=== PATIENT | male | born 1945 | race Two or more races ===

== ENCOUNTER 2018-04-17 08:35 | Outpatient (CLI) | payer OTHER ==
[~2018-04-17] VITALS: Ht 170.2 cm; Wt 95.3 kg
[2018-04-17] MEDS ORDERED: DYMISTA NASAL S23 GM NS (11:21)
[2018-04-17] MEDS ORDERED: CEFUROXIME500 MG PO (11:21)
== END 2018-04-17 08:55 | disposition home or self-care (01) ==
LOC: OFIC 805 08:35
DX: H90.3 Sensorineural hearing loss, bilateral (principal); J32.8 Other chronic sinusitis; J34.2 Deviated nasal septum; H61.22 Impacted cerumen, left ear; R49.0 Dysphonia

== ENCOUNTER 2018-04-30 08:24 | Outpatient (CLI) | payer OTHER ==
[~2018-04-30 08:24] MED LIST: CEFUROXIME500 MG PO; DYMISTA NASAL S23 GM NS
== END 2018-04-30 08:32 | disposition home or self-care (01) ==
LOC: RAD 501 08:24
DX: M54.2 Cervicalgia (principal); M79.642 Pain in left hand

== ENCOUNTER 2018-06-05 07:55 | Outpatient (CLI) | payer OTHER ==
[~2018-06-05] VITALS: Ht 152.4 cm; Wt 95.3 kg
[2018-06-05] MEDS ORDERED: ZANTAC300 MG PO (10:10)
[2018-06-05] MEDS ORDERED: FLONASE16 GM NASAL (10:11)
== END 2018-06-05 08:15 | disposition home or self-care (01) ==
LOC: OFIC 805 07:55
DX: H90.3 Sensorineural hearing loss, bilateral (principal); J01.80 Other acute sinusitis; J32.8 Other chronic sinusitis; J34.2 Deviated nasal septum; R49.0 Dysphonia; J00 Acute nasopharyngitis [common cold]

== ENCOUNTER 2019-07-09 07:28 | Outpatient (CLI) | payer OTHER ==
[~2019-07-09] VITALS: Ht 152.4 cm; Wt 95.3 kg
[~2019-07-09 07:28] MED LIST changes: +FLONASE16 GM NASAL; +ZANTAC300 MG PO
[2019-07-09] MEDS ORDERED: DERMOTIC20 ML OTIC (09:24)
[2019-07-09] MEDS ORDERED: ZEGERID 40 MG1 EACH PO (09:27)
== END 2019-07-09 13:17 | disposition home or self-care (01) ==
LOC: OFIC 805 07:28
DX: H90.3 Sensorineural hearing loss, bilateral (principal); J34.2 Deviated nasal septum; R49.0 Dysphonia; J31.0 Chronic rhinitis; L29.8 Other pruritus

== ENCOUNTER 2019-09-18 08:40 | Outpatient (CLI) | payer OTHER ==
[~2019-09-18] VITALS: Ht 152.4 cm; Wt 90.7 kg
[~2019-09-18 08:40] MED LIST changes: +DERMOTIC20 ML OTIC; +ZEGERID 40 MG1 EACH PO
== END 2019-09-18 11:00 | disposition home or self-care (01) ==
LOC: OFIC 805 08:40
DX: H90.3 Sensorineural hearing loss, bilateral (principal); J32.8 Other chronic sinusitis; J34.2 Deviated nasal septum; J31.0 Chronic rhinitis; K21.0 Gastro-esophageal reflux disease with esophagitis

== ENCOUNTER 2020-05-26 11:12 | Outpatient (CLI) | payer OTHER | END 2020-05-26 12:30 | disposition home or self-care (01) | LOC: OFIC 805 11:12 | PROVIDERS: ATTEND Otolaryngology | DX: J31.0 Chronic rhinitis (principal); J34.2 Deviated nasal septum; H90.3 Sensorineural hearing loss, bilateral ==